=== PATIENT | male | born 1945 | race Caucasian/White ===

== ENCOUNTER 2017-10-03 00:45 | Emergency (ER) | payer MEDICARE, OTHER ==
[2017-10-03 01:11] LABS: #Eosinphils 0.1 thou/uL (0.0-0.7); #Lymphocytes 1.1 thou/uL (1.20-3.40); #Monocytes 0.8 thou/uL (0.11-0.59); #Neutrophils 7.2 thou/uL (1.40-6.50); %Basophils 0.3 % (0.0-1.0); %Eosinophils 0.7 % (0.0-10.0); %Lymphocytes 11.6 % (21.0-51.0); %Monocytes 9.2 % (0.0-10.0); Hematocrit 41.7 % (42.0-52.0); Red Blood Cell (RBC) Count 4.27 mill/uL (4.70-6.10); White Blood Cell (WBC) Count 9.2 thou/uL (4.8-10.8)
[2017-10-03 01:38] LABS: ALT (SGPT) 15 U/L (8-55); AST (SGOT) 14 U/L (5-34); Alkaline Phosphatase 66 U/L (40-150); Anion Gap 12 mmol/L (10-20); BUN (Urea Nitrogen) 28 mg/dL (8.4-25.7); Bilirubin, Total 0.5 mg/dL (0.2-1.2); Calc. Creatinine Clearance 0 mL/min (70-130); Carbon Dioxide 26 mmol/L (23-31); Chloride 103 mmol/L (98-107); Estimated GFR-MDRD 44; Globulin 3.6 g/dL (2.4-3.5); Protein, Total 7.2 g/dL (5.8-8.1)
[2017-10-03 01:38] LABS: Lactic Acid - Sepsis 1.2 mmol/L (0.5-2.2)
[2017-10-03 01:48] LABS: Troponin I Less than 0.010 ng/mL (< 0.028)
== END 2017-10-03 09:14 | disposition home or self-care (01) ==
LOC: ERS 00:45
DX: E86.0 Dehydration (principal); N17.9 Acute kidney failure, unspecified; E78.5 Hyperlipidemia, unspecified; I10 Essential (primary) hypertension; F32.9 Major depressive disorder, single episode, unspecified; F41.9 Anxiety disorder, unspecified; I73.9 Peripheral vascular disease, unspecified; F17.200 Nicotine dependence, unspecified, uncomplicated; Z79.899 Other long term (current) drug therapy
CPT/HCPCS: 36415; 80053; 82274; 82553; 83605; 83735; 84484; 85025; 93005; 96360; 96361; 99406

== ENCOUNTER 2017-10-04 11:36 | Emergency (ER) | payer MEDICARE, OTHER ==
--- NOTE | 2017-10-04 12:32 | RAD ---
CHEST 1 VIEW: HISTORY: Cough. COMPARISON: 05/08/17. FINDINGS: Cardiac silhouette is magnified by projection. Pulmonary vasculature is slightly engorged. Mediasti num is midline. There is no lobar consolidation or evidence of pneumothorax. dancing teacher leads overlie the chest. IMPRESSION: Borderline pulmonary vascular congestion. POS: [facility]
[2017-10-04 13:41] LABS: #Eosinphils 0.1 thou/uL (0.0-0.7); #Lymphocytes 0.7 thou/uL (1.20-3.40); #Monocytes 0.7 thou/uL (0.11-0.59); #Neutrophils 3.8 thou/uL (1.40-6.50); %Basophils 0.4 % (0.0-1.0); %Eosinophils 1.9 % (0.0-10.0); %Lymphocytes 12.6 % (21.0-51.0); %Monocytes 13.2 % (0.0-10.0); Hematocrit 37.7 % (42.0-52.0); Mean Platelet Volume 6.3 fL (7.4-10.4); Red Blood Cell (RBC) Count 3.85 mill/uL (4.70-6.10); White Blood Cell (WBC) Count 5.3 thou/uL (4.8-10.8)
[2017-10-04 14:01] LABS: Lactic Acid - Sepsis 1.6 mmol/L (0.5-2.2)
[2017-10-04 14:08] LABS: Troponin I Less than 0.010 ng/mL (< 0.028)
[2017-10-04 14:13] LABS: ALT (SGPT) 11 U/L (8-55); AST (SGOT) 15 U/L (5-34); Alkaline Phosphatase 50 U/L (40-150); Anion Gap 10 mmol/L (10-20); BUN (Urea Nitrogen) 14 mg/dL (8.4-25.7); Bilirubin, Total 0.4 mg/dL (0.2-1.2); Calc. Creatinine Clearance 0 mL/min (70-130); Calcium 8.4 mg/dL (7.8-10.44); Carbon Dioxide 25 mmol/L (23-31); Chloride 107 mmol/L (98-107); Estimated GFR-MDRD 61; Globulin 2.9 g/dL (2.4-3.5); Lipase 14 U/L (8-78); Magnesium 1.4 mg/dL (1.6-2.6); Protein, Total 5.9 g/dL (5.8-8.1)
[2017-10-04] MEDS ORDERED: Magnesium Sulfate 2 GM/100 ML BAG ONE (15:03)
--- NOTE | 2017-10-04 15:34 | CT ---
CT OF ABDOMEN AND PELVIS PERFORMED WITH INTRAVENOUS CONTRAST ENHANCEMENT: 10/04/17 HISTORY: Abdominal pain, diarrhea, onset x5 days. The lung bases are clear of infiltrates. Liver shows suggestion of fatty change. Liver measures 18.2 cm in length. The spleen is within normal limits. The pancreas and gallbladder regions are unremarkable. Right and left adrenal glands are normal. Bilateral renal cysts are present. There is no significant periaortic or mesenteric adenopathy. There is some questionable wall thickening to the colon more so in the left colon and sigmoid region. This is equivocal as it is not optimally distended. There is no pericolonic inflammatory process. CT OF PELVIS PERFORMED WITH CONTRAST ENHANCEMENT: The bladder is mildly distended. There is no evidence of adenopathy, mass or free fluid. The appendix is normal. There are arthritic changes of the spine and hips. IMPRESSION: 1. Questionable wall thickening to the colon, particularly the left colon and sigmoid region. I cannot definitely exclude a colitis. Clinical correlation is recommended. No pericolonic inflammator y process seen. 2. Bilateral renal cysts. 3. Fatty changes of the liver which is borderline in size. POS: [facility]
[2017-10-04 16:05] LABS: Bilirubin Negative (Negative); Blood, Urine Small (Negative); Glucose, Urine (Dipstick) Negative (Negative); Ketone, Urine Negative (Negative); Nitrite Negative (Negative); Protein, Urine (Dipstick) Negative (Neg-Trace); Urobilinogen 0.2 mg/dL (0.2-1.0)
[2017-10-04 16:08] LABS: Bacteria/HPF None Seen HPF (None Seen); Hyaline Casts/LPF 0-3 HYALINE CAST LPF (0-3 Hyaline); RBC/HPF 0-3 HPF (0-3); Squamous Epithelial None Seen HPF (0-3); WBC/HPF None Seen HPF (0-3)
[2017-10-04] MEDS ORDERED: ISOVUE-370 76%-LOCM 1 ML ONE (17:22)
[2017-10-04] MEDS ORDERED: Iopamidol 370 76% 50 ML VIAL FS ONE (17:22)
--- NOTE | 2017-10-29 12:58 | EKG ---
Test Reason : Blood Pressure : / mmHG Vent. Rate : 083 BPM Atrial Rate : 083 BPM P-R Int : 136 ms QRS Dur : 088 ms QT Int : 374 ms P-R-T Axes : 057 070 090 degrees QTc Int : 439 ms Normal sinus rhythm Low voltage QRS Nonspecific ST and T wave abnormality Abnormal ECG Confirmed by RAUL PITTS ([id number]), story editor JUDY GOLDMAN ([id number]) on 10/29/2017 12:58:24 PM Referred By: GISSELLE Confirmed By:RAUL PITTS
== END 2017-10-04 17:03 | disposition home or self-care (01) ==
LOC: ERS 11:36
DX: K52.9 Noninfective gastroenteritis and colitis, unspecified (principal); E86.0 Dehydration; E83.42 Hypomagnesemia; I73.9 Peripheral vascular disease, unspecified; E78.5 Hyperlipidemia, unspecified; I10 Essential (primary) hypertension; F41.9 Anxiety disorder, unspecified; F32.9 Major depressive disorder, single episode, unspecified; F17.220 Nicotine dependence, chewing tobacco, uncomplicated; Z79.82 Long term (current) use of aspirin; Z79.899 Other long term (current) drug therapy
CPT/HCPCS: 36415; 51701; 71010; 74177; 80053; 81003; 81015; 82553; 83605; 83690; 83735; 83880; 84484; 85025; 93005; 96361; 96365; 99406; J3475

== ENCOUNTER 2019-03-23 14:15 | Outpatient (CLI) | payer OTHER ==
--- NOTE | 2019-03-23 15:58 | MRI ---
MRI Cervical spine without contrast: HISTORY: Cervical spondylosis COMPARISON: None FINDINGS: The craniocervical junction is unremarkable. Cord signal is somewhat distorted by motion, limiting assessment C1-2:No significant stenosis. C2-3:Mild effacement of ventral thecal sac due to disc osteophyte complex C3-4:Mild central canal stenosis and mild to moderate left foraminal stenosis due to disc osteophyte and facet hypertrophy. Mild right foraminal narrowing. C4-5:Mild central canal stenosis, and moderate bilateral neural foraminal stenosis, right greater shyanne n left, due to broad-based disc osteophyte, and bilateral facet hypertrophy C5-6:Partial osseous fusion of disc space with prominent height loss of the disc space present. There is mild ventral cord flattening due to broad-based disc osteophyte with moderate left and mild right neural foraminal narrowing C6-7: Prominent disc space narrowing with right asymmetric disc osteophyte complex. Mild ventral cord effacement and mild bilateral neural foraminal stenosis present C7-T1:Mild right foraminal narrowing due to osteophyte formation. No significant central canal or lef t foraminal stenosis IMPRESSION: Multilevel degenerative change throughout cervical spine, as outlined above. Transcribed Date/Time: 03/23/2019 5:10 PM
== END 2019-03-23 14:16 | disposition home or self-care (01) ==
LOC: TBSIIMAG 14:15
PROVIDERS: ATTEND Neurological Surgery
DX: M47.812 Spondylosis without myelopathy or radiculopathy, cervical region (principal)
CPT/HCPCS: 72141

== ENCOUNTER 2019-12-11 14:08 | Emergency (ER) | payer OTHER ==
[2019-12-11] MEDS ORDERED: Ketorolac Tromethamine 60 MG/2 ML VIAL ONE (14:47)
--- NOTE | 2019-12-11 15:37 | CT ---
EXAM: CT of the lumbar spine without contrast HISTORY: Low back pain that radiates down the right leg COMPARISON: None TECHNIQUE: Multiple contiguous axial images were obtained in a CT of the lumbar spine without contras t. Sagittal and coronal reformats were performed. FINDINGS: The vertebral bodies demonstrate normal height without fracture or subluxation. Interverteb ral discs are narrowed throughout the lumbar spine, most prominent at L4/5 and L5/S1. Moderate osteophytes are seen throughout the lumbar spine. . No bony narrowing of the central canal is seen. T here may be a discussed by complex at L5/S1 which causes moderate central canal stenosis. There is moderate bilateral neural foraminal stenosis at L5/S1. No bony narrowing of the other neural foramina is seen. . The prevertebral and paraspinal soft tissues are unremarkable. IMPRESSION: Degenerative changes without evidence of acute osseous abnormality of the lumbar spine.
== END 2019-12-11 15:00 | disposition home or self-care (01) ==
LOC: ERS 14:08
DX: M51.36 Other intervertebral disc degeneration, lumbar region (principal); E78.5 Hyperlipidemia, unspecified; I10 Essential (primary) hypertension; F41.9 Anxiety disorder, unspecified; F32.9 Major depressive disorder, single episode, unspecified; F17.200 Nicotine dependence, unspecified, uncomplicated
CPT/HCPCS: 72131; 96372; J1885

== ENCOUNTER 2021-07-25 22:06 | Observation (INO) | payer OTHER ==
[2021-07-25 22:49] LABS: #Eosinphils 0.2 thou/uL (0.0-0.7); #Lymphocytes 1.2 thou/uL (1.20-3.40); #Monocytes 0.6 thou/uL (0.11-0.59); #Neutrophils 8.4 thou/uL (1.40-6.50); %Basophils 0.1 % (0.0-1.0); %Eosinophils 1.6 % (0.0-10.0); %Lymphocytes 11.8 % (21.0-51.0); %Monocytes 5.4 % (0.0-10.0); %Neutrophils 81.1 % (42.0-75.0); Mean Corpuscular HGB CONC 32.7 g/dL (32.0-36.0); Mean Corpuscular Hemoglobin 31.6 pg (27.0-31.0); Mean Corpuscular Volume 96.7 fL (78.0-98.0); Mean Platelet Volume 6.2 fL (7.4-10.4); Platelet Count 201 thou/uL (130-400); RBC Distribution Width 12.4 % (11.5-14.5); Red Blood Cell (RBC) Count 4.76 mill/uL (4.70-6.10); White Blood Cell (WBC) Count 10.4 thou/uL (4.8-10.8)
[2021-07-25 23:10] LABS: ALT (SGPT) Less than 7 U/L (8-55); AST (SGOT) 8 U/L (5-34); Albumin 3.7 g/dL (3.4-4.8); Alkaline Phosphatase 64 U/L (40-110); Anion Gap 13 mmol/L (10-20); BUN (Urea Nitrogen) 26 mg/dL (8.4-25.7); Bilirubin, Total 0.5 mg/dL (0.2-1.2); CK (CPK) 19 U/L (30-200); Calc. Creatinine Clearance 0 mL/min (70-130); Calcium 9.9 mg/dL (7.8-10.44); Carbon Dioxide 27 mmol/L (23-31); Chloride 103 mmol/L (98-107); Globulin 3.3 g/dL (2.4-3.5); Glucose 121 mg/dL (83-110); Potassium 4.9 mmol/L (3.5-5.1); Sodium 138 mmol/L (136-145)
[2021-07-25 23:11] LABS: PTT 34.7 sec (22.9-36.1); Prothrombin Time 13.6 sec (12.0-14.7)
[2021-07-25] MEDS ORDERED: Meclizine HCl 25 MG TAB ONE (23:13)
[2021-07-25 23:27] LABS: Bacteria/HPF None Seen HPF (None Seen); Bilirubin Negative (Negative); Blood, Urine Trace (Negative); Clarity Clear (Clear); Glucose, Urine (Dipstick) Normal (Negative); Ketone, Urine Negative (Negative); Leukocyte Negative Leu/uL (Negative); Nitrite Negative (Negative); Protein, Urine (Dipstick) Negative (Neg-Trace); Specific Gravity, Urine 1.022 (1.002-1.036); Squamous Epithelial None Seen HPF (0-3); Urobilinogen Normal mg/dL (Less than 2); WBC/HPF None Seen HPF (0-3)
[2021-07-26] MEDS ORDERED: Acetaminophen 325 MG TAB PO PRN ×2 (01:07→17:20)
[2021-07-26] MEDS ORDERED: Ondansetron ODT 4 MG TAB PO PRN (01:07)
[2021-07-26] MEDS ORDERED: Lactated Ringer's 1,000 ML IV SCH (01:45)
[2021-07-26 03:03] LABS: Troponin I Less than 0.010 ng/mL (< 0.028)
[2021-07-26 04:15] LABS: SARS-CoV-2 NAA Rapid Test Not Detected (NotDetected)
[2021-07-26 07:42] LABS: Troponin I Less than 0.010 ng/mL (< 0.028)
[2021-07-26] MEDS ORDERED: Mometasone Furoate 120 PUFF 220 MCG INH SCH (18:30)
[2021-07-26] MEDS ORDERED: Albuterol Sulfate 2.5 mg/3 ml Neb NEB PRN (18:30)
[2021-07-26] MEDS ORDERED: Mometasone Furoate 30 PUFF 220 MCG INH SCH (18:30)
[2021-07-26 18:34] VITALS: BMI 28.4
[2021-07-26] MEDS: Carbidopa/Levodopa 25-100 mg Tablet PO SCH (20:56)
[2021-07-26] MEDS ORDERED: PITAVASTATIN CALCIUM PO SCH (21:00)
[2021-07-27] MEDS: Carbidopa/Levodopa 25-100 mg Tablet PO SCH ×2 (08:43→14:07)
[2021-07-27] MEDS ORDERED: FLUoxetine HCl 20 MG CAP PO SCH (09:00)
[2021-07-27] MEDS ORDERED: Lisinopril 2.5 MG TAB PO SCH (09:00)
[2021-07-27] MEDS ORDERED: Cholecalciferol 1,000 UNITS (25 MCG) TAB PO SCH (09:00)
[2021-07-27] MEDS ORDERED: Aspirin Chewable 81 MG TAB PO SCH (09:00)
[2021-07-27] MEDS ORDERED: Finasteride 5 MG TAB PO SCH (09:00)
[2021-07-27 15:47] VITALS: BP 144/63; TEMP 97.8
[2021-07-28] MEDS ORDERED: Triamterene/Hydrochlorothiazide 37.5 mg/25 mg Tablet PO SCH ×2 (09:00)
== END 2021-07-27 19:18 | disposition home health service (06) ==
LOC: ERS 22:06 → ERHOLD 07-26 00:12 → 2NO 07-26 17:28
PROVIDERS: ADMIT Student in an Organized Health Care Education/Training Program; ATTEND Student in an Organized Health Care Education/Training Program
DX: R55 Syncope and collapse (principal); G20 Parkinson's disease; I12.9 Hypertensive chronic kidney disease with stage 1 through stage 4 chronic kidney disease, or unspecified chronic kidney disease; N18.31 Chronic kidney disease, stage 3a; E78.5 Hyperlipidemia, unspecified; N40.1 Benign prostatic hyperplasia with lower urinary tract symptoms; N39.498 Other specified urinary incontinence; I73.9 Peripheral vascular disease, unspecified; Z87.891 Personal history of nicotine dependence; Z79.02 Long term (current) use of antithrombotics/antiplatelets; Z79.82 Long term (current) use of aspirin; Z79.899 Other long term (current) drug therapy; Z88.8 Allergy status to other drugs, medicaments and biological substances; Z95.1 Presence of aortocoronary bypass graft; Z20.822 Contact with and (suspected) exposure to COVID-19
CPT/HCPCS: 36415; 51701; 70450; 71045; 80053; 81003; 81015; 82550; 84443; 84484; 85025; 85610; 85730; 87086; 93005; G0378; J7120; U0002

== ENCOUNTER 2021-08-04 21:07 | Emergency (ER) | payer OTHER ==
[2021-08-04] MEDS ORDERED: Albuterol 200 PUFF (6.7GM INHALER) ONE (22:54)
== END 2021-08-05 00:09 | disposition home or self-care (01) ==
LOC: ERS 21:07
DX: J44.9 Chronic obstructive pulmonary disease, unspecified (principal); I73.9 Peripheral vascular disease, unspecified; I10 Essential (primary) hypertension; E78.5 Hyperlipidemia, unspecified; F17.210 Nicotine dependence, cigarettes, uncomplicated; G20 Parkinson's disease; Z79.82 Long term (current) use of aspirin; Z79.899 Other long term (current) drug therapy
CPT/HCPCS: 99284

== ENCOUNTER 2022-07-13 14:40 | Inpatient (IN) | payer MEDICARE, OTHER ==
[2022-07-13] MEDS ORDERED: Senokot S 8.6-50 MG TAB PO PRN (16:28)
[2022-07-13] MEDS ORDERED: Ondansetron ODT 4 MG TAB PO PRN (16:28)
[2022-07-13] MEDS ORDERED: Ondansetron PF 4 MG/2 ML Vial IVP PRN (16:28)
[2022-07-13] MEDS: Sodium Chloride 0.9% 1,000 ML IV SCH (17:18)
[2022-07-13 17:28] LABS: #Eosinphils 0.2 thou/uL (0.0-0.7); #Lymphocytes 1.2 thou/uL (1.20-3.40); #Monocytes 0.5 thou/uL (0.11-0.59); #Neutrophils 5.1 thou/uL (1.40-6.50); %Basophils 0.3 % (0.0-1.0); %Eosinophils 2.3 % (0.0-10.0); %Lymphocytes 17.2 % (21.0-51.0); %Monocytes 7.1 % (0.0-10.0); %Neutrophils 73.2 % (42.0-75.0); Hemoglobin 16.4 g/dL (14.0-18.0); Mean Corpuscular HGB CONC 34.1 g/dL (32.0-36.0); Mean Corpuscular Hemoglobin 33.1 pg (27.0-31.0); Mean Corpuscular Volume 97.2 fL (78.0-98.0); Mean Platelet Volume 6.7 fL (7.4-10.4); Platelet Count 179 thou/uL (130-400); RBC Distribution Width 12.1 % (11.5-14.5); Red Blood Cell (RBC) Count 4.96 mill/uL (4.70-6.10)
[2022-07-13 17:43] LABS: Anion Gap 15 mmol/L (10-20); BUN (Urea Nitrogen) 24 mg/dL (8.4-25.7); Calc. Creatinine Clearance 79 mL/min (70-130); Calcium 9.3 mg/dL (7.8-10.44); Carbon Dioxide 23 mmol/L (23-31); Chloride 106 mmol/L (98-107); Estimated GFR 81; Glucose 100 mg/dL (83-110); Magnesium 1.7 mg/dL (1.6-2.6); Potassium 4.2 mmol/L (3.5-5.1); Sodium 140 mmol/L (136-145)
[2022-07-13 18:14] LABS: Troponin I 0.011 ng/mL (< 0.028)
[2022-07-13] MEDS: Nicotine 14 MG PATCH TD SCH (18:18)
[2022-07-13] MEDS ORDERED: Nitroglycerin 0.4 MG TAB (25 Tab Bottle) SL PRN (18:26)
[2022-07-13] MEDS: Acetaminophen 325 MG TAB PO PRN (19:20)
[2022-07-13] MEDS: Metoprolol Tartrate 50 MG TAB PO SCH (19:20)
[2022-07-13] MEDS: Carbidopa/Levodopa 25-100 mg Tablet PO SCH (19:21)
[2022-07-13] MEDS: Enoxaparin Sodium 40 MG/0.4 ML SYRINGE SC SCH (19:23)
[2022-07-13 20:18] LABS: Troponin I Less than 0.010 ng/mL (< 0.028)
[2022-07-13] MEDS ORDERED: Carbidopa/Levodopa 25-100 mg Tablet PO SCH (21:00)
[2022-07-13] MEDS: Floranex 1 GM Packet PO SCH (21:11)
[2022-07-14] MEDS ORDERED: hydrALAZINE 20 MG/ML VIAL SLOW IVP SCH (01:00)
[2022-07-14 04:17] LABS: #Eosinphils 0.3 thou/uL (0.0-0.7); #Lymphocytes 1.3 thou/uL (1.20-3.40); #Monocytes 0.5 thou/uL (0.11-0.59); #Neutrophils 5.5 thou/uL (1.40-6.50); %Basophils 0.6 % (0.0-1.0); %Lymphocytes 16.7 % (21.0-51.0); %Monocytes 6.9 % (0.0-10.0); %Neutrophils 71.8 % (42.0-75.0); Hemoglobin 16.5 g/dL (14.0-18.0); Mean Corpuscular HGB CONC 34.7 g/dL (32.0-36.0); Mean Corpuscular Hemoglobin 33.3 pg (27.0-31.0); Mean Corpuscular Volume 96.1 fL (78.0-98.0); Mean Platelet Volume 6.4 fL (7.4-10.4); Platelet Count 171 thou/uL (130-400); RBC Distribution Width 12.1 % (11.5-14.5); Red Blood Cell (RBC) Count 4.95 mill/uL (4.70-6.10); White Blood Cell (WBC) Count 7.6 thou/uL (4.8-10.8)
[2022-07-14 04:36] LABS: Anion Gap 13 mmol/L (10-20); BUN (Urea Nitrogen) 21 mg/dL (8.4-25.7); Calc. Creatinine Clearance 89 mL/min (70-130); Calcium 9.5 mg/dL (7.8-10.44); Carbon Dioxide 23 mmol/L (23-31); Chloride 107 mmol/L (98-107); Estimated GFR 90; Glucose 112 mg/dL (83-110); Potassium 3.4 mmol/L (3.5-5.1); Sodium 140 mmol/L (136-145)
[2022-07-14] MEDS: Acetaminophen 325 MG TAB PO PRN (05:10)
[2022-07-14] MEDS: Sodium Chloride 0.9% 1,000 ML IV SCH (05:39)
[2022-07-14] MEDS ORDERED: Potassium Chloride 20 MEQ TAB PO SCH (08:00)
[2022-07-14] MEDS: Tamsulosin HCl 0.4 MG CAP PO SCH (09:02)
[2022-07-14] MEDS: Floranex 1 GM Packet PO SCH ×2 (09:02→20:33)
[2022-07-14] MEDS: Metoprolol Tartrate 50 MG TAB PO SCH ×2 (09:03→20:34)
[2022-07-14] MEDS: Carbidopa/Levodopa 25-100 mg Tablet PO SCH ×3 (09:03→19:07)
[2022-07-14] MEDS: Aspirin Chewable 81 MG TAB PO SCH (09:04)
[2022-07-14] MEDS: Finasteride 5 MG TAB PO SCH (09:04)
[2022-07-14] MEDS: Cholecalciferol 1,000 UNITS (25 MCG) TAB PO SCH (09:04)
[2022-07-14] MEDS: FLUoxetine HCl 10 MG CAP PO SCH (09:04)
[2022-07-14] MEDS: Lisinopril 10 MG TAB PO SCH (09:04)
[2022-07-14] MEDS: Nicotine 14 MG PATCH TD SCH (18:58)
[2022-07-14] MEDS ORDERED: Carbidopa/Levodopa 25-100 mg Tablet PO SCH (19:00)
[2022-07-14] MEDS: Enoxaparin Sodium 40 MG/0.4 ML SYRINGE SC SCH (20:34)
[2022-07-15 04:57] LABS: #Eosinphils 0.3 thou/uL (0.0-0.7); #Lymphocytes 1.7 thou/uL (1.20-3.40); #Monocytes 0.5 thou/uL (0.11-0.59); #Neutrophils 4.1 thou/uL (1.40-6.50); %Basophils 0.6 % (0.0-1.0); %Eosinophils 5.1 % (0.0-10.0); %Lymphocytes 25.1 % (21.0-51.0); %Monocytes 8.2 % (0.0-10.0); Hemoglobin 16.3 g/dL (14.0-18.0); Mean Corpuscular HGB CONC 35.4 g/dL (32.0-36.0); Mean Corpuscular Hemoglobin 34.4 pg (27.0-31.0); Mean Corpuscular Volume 97.2 fL (78.0-98.0); Mean Platelet Volume 6.8 fL (7.4-10.4); Platelet Count 172 thou/uL (130-400); RBC Distribution Width 12.4 % (11.5-14.5); Red Blood Cell (RBC) Count 4.75 mill/uL (4.70-6.10); White Blood Cell (WBC) Count 6.6 thou/uL (4.8-10.8)
[2022-07-15 05:04] LABS: Anion Gap 12 mmol/L (10-20); BUN (Urea Nitrogen) 19 mg/dL (8.4-25.7); Calc. Creatinine Clearance 86 mL/min (70-130); Calcium 9.2 mg/dL (7.8-10.44); Carbon Dioxide 24 mmol/L (23-31); Chloride 107 mmol/L (98-107); Estimated GFR 89; Glucose 92 mg/dL (83-110); Potassium 4.1 mmol/L (3.5-5.1); Sodium 139 mmol/L (136-145)
[2022-07-15] MEDS: Tamsulosin HCl 0.4 MG CAP PO SCH (08:04)
[2022-07-15] MEDS: Aspirin Chewable 81 MG TAB PO SCH (08:04)
[2022-07-15] MEDS: Carbidopa/Levodopa 25-100 mg Tablet PO SCH ×4 (08:04→21:02)
[2022-07-15] MEDS: Finasteride 5 MG TAB PO SCH (08:04)
[2022-07-15] MEDS: Cholecalciferol 1,000 UNITS (25 MCG) TAB PO SCH (08:04)
[2022-07-15] MEDS: FLUoxetine HCl 10 MG CAP PO SCH (08:05)
[2022-07-15] MEDS: Lisinopril 10 MG TAB PO SCH (08:05)
[2022-07-15] MEDS: Metoprolol Tartrate 50 MG TAB PO SCH ×2 (08:05→20:54)
[2022-07-15] MEDS: Floranex 1 GM Packet PO SCH ×2 (08:19→20:55)
[2022-07-15] MEDS: Nicotine 14 MG PATCH TD SCH (17:02)
[2022-07-15] MEDS: Enoxaparin Sodium 40 MG/0.4 ML SYRINGE SC SCH (20:55)
[2022-07-16 05:39] LABS: Anion Gap 14 mmol/L (10-20); BUN (Urea Nitrogen) 17 mg/dL (8.4-25.7); Calc. Creatinine Clearance 95 mL/min (70-130); Calcium 9.4 mg/dL (7.8-10.44); Carbon Dioxide 24 mmol/L (23-31); Chloride 105 mmol/L (98-107); Eosinophils 4 % (0-10); Estimated GFR 92; Glucose 85 mg/dL (83-110); Hemoglobin 15.4 g/dL (14.0-18.0); Lymphocytes 21 % (21-51); MDiff Complete? YES; Mean Corpuscular Volume 97.2 fL (78.0-98.0); Mean Platelet Volume 7.4 fL (7.4-10.4); Monocytes 6 % (0-10); Neutrophil 68 % (42-75); Platelet Count 181 thou/uL (130-400); Potassium 3.8 mmol/L (3.5-5.1); RBC Distribution Width 12.4 % (11.5-14.5); Reactive Lymphocytes 1 % (0-10); Red Blood Cell (RBC) Count 4.66 mill/uL (4.70-6.10); Sodium 139 mmol/L (136-145); White Blood Cell (WBC) Count 5.4 thou/uL (4.8-10.8)
[2022-07-16] MEDS: Tamsulosin HCl 0.4 MG CAP PO SCH (07:49)
[2022-07-16] MEDS: Finasteride 5 MG TAB PO SCH (07:50)
[2022-07-16] MEDS: Aspirin Chewable 81 MG TAB PO SCH (07:50)
[2022-07-16] MEDS: Lisinopril 10 MG TAB PO SCH (07:50)
[2022-07-16] MEDS: Carbidopa/Levodopa 25-100 mg Tablet PO SCH ×4 (07:50→21:32)
[2022-07-16] MEDS: Metoprolol Tartrate 50 MG TAB PO SCH ×2 (07:50→21:32)
[2022-07-16] MEDS: FLUoxetine HCl 10 MG CAP PO SCH (07:50)
[2022-07-16] MEDS: Cholecalciferol 1,000 UNITS (25 MCG) TAB PO SCH (07:51)
[2022-07-16] MEDS: Floranex 1 GM Packet PO SCH ×2 (09:52→21:32)
[2022-07-16] MEDS: Nicotine 14 MG PATCH TD SCH (19:01)
[2022-07-16] MEDS: Enoxaparin Sodium 40 MG/0.4 ML SYRINGE SC SCH (21:32)
[2022-07-17] MEDS: Tamsulosin HCl 0.4 MG CAP PO SCH (08:14)
[2022-07-17] MEDS: Finasteride 5 MG TAB PO SCH (08:14)
[2022-07-17] MEDS: Metoprolol Tartrate 50 MG TAB PO SCH ×2 (08:15→21:06)
[2022-07-17] MEDS: Acetaminophen 325 MG TAB PO PRN (08:15)
[2022-07-17] MEDS: Carbidopa/Levodopa 25-100 mg Tablet PO SCH ×4 (08:15→21:05)
[2022-07-17] MEDS: Aspirin Chewable 81 MG TAB PO SCH (08:15)
[2022-07-17] MEDS: Floranex 1 GM Packet PO SCH ×2 (08:15→21:04)
[2022-07-17] MEDS: Cholecalciferol 1,000 UNITS (25 MCG) TAB PO SCH (08:16)
[2022-07-17] MEDS: Lisinopril 10 MG TAB PO SCH (08:17)
[2022-07-17] MEDS: FLUoxetine HCl 10 MG CAP PO SCH (08:17)
[2022-07-17] MEDS: Nicotine 14 MG PATCH TD SCH (21:04)
[2022-07-17] MEDS: Enoxaparin Sodium 40 MG/0.4 ML SYRINGE SC SCH (21:07)
[2022-07-18] MEDS: Finasteride 5 MG TAB PO SCH (08:16)
[2022-07-18] MEDS: Cholecalciferol 1,000 UNITS (25 MCG) TAB PO SCH (08:16)
[2022-07-18] MEDS: Lisinopril 10 MG TAB PO SCH (08:16)
[2022-07-18] MEDS: FLUoxetine HCl 10 MG CAP PO SCH (08:16)
[2022-07-18] MEDS: Aspirin Chewable 81 MG TAB PO SCH (08:16)
[2022-07-18] MEDS: Carbidopa/Levodopa 25-100 mg Tablet PO SCH ×4 (08:16→21:04)
[2022-07-18] MEDS: Tamsulosin HCl 0.4 MG CAP PO SCH (08:16)
[2022-07-18] MEDS: Floranex 1 GM Packet PO SCH ×2 (08:17→21:01)
[2022-07-18] MEDS: Metoprolol Tartrate 50 MG TAB PO SCH ×2 (08:17→21:01)
[2022-07-18] MEDS: Nicotine 14 MG PATCH TD SCH (17:17)
[2022-07-18] MEDS: Enoxaparin Sodium 40 MG/0.4 ML SYRINGE SC SCH (21:04)
[2022-07-19] MEDS: Aspirin Chewable 81 MG TAB PO SCH (08:36)
[2022-07-19] MEDS: Metoprolol Tartrate 50 MG TAB PO SCH ×2 (08:36→21:09)
[2022-07-19] MEDS: Lisinopril 10 MG TAB PO SCH (08:36)
[2022-07-19] MEDS: Carbidopa/Levodopa 25-100 mg Tablet PO SCH ×4 (08:37→21:09)
[2022-07-19] MEDS: Cholecalciferol 1,000 UNITS (25 MCG) TAB PO SCH (08:38)
[2022-07-19] MEDS: Tamsulosin HCl 0.4 MG CAP PO SCH (08:38)
[2022-07-19] MEDS: FLUoxetine HCl 10 MG CAP PO SCH (08:38)
[2022-07-19] MEDS: Finasteride 5 MG TAB PO SCH (08:38)
[2022-07-19] MEDS: Floranex 1 GM Packet PO SCH ×2 (08:39→21:09)
[2022-07-19] MEDS: Nicotine 14 MG PATCH TD SCH (16:40)
[2022-07-19] MEDS: Enoxaparin Sodium 40 MG/0.4 ML SYRINGE SC SCH (21:09)
[2022-07-20] MEDS: Carbidopa/Levodopa 25-100 mg Tablet PO SCH ×4 (08:38→21:04)
[2022-07-20] MEDS: Floranex 1 GM Packet PO SCH ×2 (08:39→21:09)
[2022-07-20] MEDS: Metoprolol Tartrate 50 MG TAB PO SCH ×2 (08:39→21:04)
[2022-07-20] MEDS: Cholecalciferol 1,000 UNITS (25 MCG) TAB PO SCH (08:40)
[2022-07-20] MEDS: Aspirin Chewable 81 MG TAB PO SCH (08:40)
[2022-07-20] MEDS: Lisinopril 10 MG TAB PO SCH (08:40)
[2022-07-20] MEDS: Finasteride 5 MG TAB PO SCH (08:40)
[2022-07-20] MEDS: FLUoxetine HCl 10 MG CAP PO SCH (08:40)
[2022-07-20] MEDS: Tamsulosin HCl 0.4 MG CAP PO SCH (08:40)
[2022-07-20] MEDS: Nicotine 14 MG PATCH TD SCH (16:40)
[2022-07-20] MEDS: Enoxaparin Sodium 40 MG/0.4 ML SYRINGE SC SCH (21:03)
[2022-07-21] MEDS: Finasteride 5 MG TAB PO SCH (08:05)
[2022-07-21] MEDS: Aspirin Chewable 81 MG TAB PO SCH (08:05)
[2022-07-21] MEDS: Lisinopril 10 MG TAB PO SCH (08:05)
[2022-07-21] MEDS: Floranex 1 GM Packet PO SCH ×2 (08:05→21:26)
[2022-07-21] MEDS: Carbidopa/Levodopa 25-100 mg Tablet PO SCH ×4 (08:05→21:39)
[2022-07-21] MEDS: Metoprolol Tartrate 50 MG TAB PO SCH ×2 (08:06→21:27)
[2022-07-21] MEDS: FLUoxetine HCl 10 MG CAP PO SCH (08:06)
[2022-07-21] MEDS: Cholecalciferol 1,000 UNITS (25 MCG) TAB PO SCH (08:06)
[2022-07-21] MEDS: Tamsulosin HCl 0.4 MG CAP PO SCH (08:07)
[2022-07-21] MEDS: Nicotine 14 MG PATCH TD SCH (17:55)
[2022-07-21] MEDS: Enoxaparin Sodium 40 MG/0.4 ML SYRINGE SC SCH (21:26)
[2022-07-22 08:08] LABS: #Eosinphils 0.2 thou/uL (0.0-0.7); #Lymphocytes 1.1 thou/uL (1.20-3.40); #Monocytes 0.6 thou/uL (0.11-0.59); #Neutrophils 3.7 thou/uL (1.40-6.50); %Basophils 0.4 % (0.0-1.0); %Eosinophils 3.5 % (0.0-10.0); %Lymphocytes 19.4 % (21.0-51.0); %Monocytes 10.6 % (0.0-10.0); Hemoglobin 16.9 g/dL (14.0-18.0); Mean Corpuscular HGB CONC 33.6 g/dL (32.0-36.0); Mean Corpuscular Hemoglobin 32.5 pg (27.0-31.0); Mean Corpuscular Volume 96.5 fL (78.0-98.0); Mean Platelet Volume 6.5 fL (7.4-10.4); Platelet Count 208 thou/uL (130-400); RBC Distribution Width 11.9 % (11.5-14.5); Red Blood Cell (RBC) Count 5.22 mill/uL (4.70-6.10); White Blood Cell (WBC) Count 5.6 thou/uL (4.8-10.8)
[2022-07-22 08:41] LABS: ALT (SGPT) Less than 7 U/L (8-55); AST (SGOT) 10 U/L (5-34); Albumin 3.7 g/dL (3.4-4.8); Alkaline Phosphatase 64 U/L (40-110); BUN (Urea Nitrogen) 18 mg/dL (8.4-25.7); Bilirubin, Total 0.9 mg/dL (0.2-1.2); Calc. Creatinine Clearance 74 mL/min (70-130); Calcium 10.2 mg/dL (7.8-10.44); Carbon Dioxide 31 mmol/L (23-31); Chloride 99 mmol/L (98-107); Estimated GFR 75; Globulin 3.4 g/dL (2.4-3.5); Glucose 89 mg/dL (83-110); Potassium 4.1 mmol/L (3.5-5.1); Protein, Total 7.1 g/dL (5.8-8.1); Sodium 140 mmol/L (136-145)
[2022-07-22] MEDS: Carbidopa/Levodopa 25-100 mg Tablet PO SCH ×4 (08:58→20:33)
[2022-07-22] MEDS: Cholecalciferol 1,000 UNITS (25 MCG) TAB PO SCH (09:00)
[2022-07-22] MEDS: Metoprolol Tartrate 50 MG TAB PO SCH ×2 (09:00→20:33)
[2022-07-22] MEDS: Lisinopril 10 MG TAB PO SCH (09:00)
[2022-07-22] MEDS: Floranex 1 GM Packet PO SCH ×2 (09:01→20:33)
[2022-07-22] MEDS: Tamsulosin HCl 0.4 MG CAP PO SCH (09:01)
[2022-07-22] MEDS: FLUoxetine HCl 10 MG CAP PO SCH (09:01)
[2022-07-22] MEDS: Aspirin Chewable 81 MG TAB PO SCH (09:01)
[2022-07-22] MEDS: Finasteride 5 MG TAB PO SCH (09:01)
[2022-07-22 09:59] LABS: Anion Gap 14 mmol/L (10-20)
[2022-07-22] MEDS: Nicotine 14 MG PATCH TD SCH (12:50)
[2022-07-22] MEDS: Enoxaparin Sodium 40 MG/0.4 ML SYRINGE SC SCH (20:33)
[2022-07-23] MEDS: Nicotine 14 MG PATCH TD SCH (07:12)
[2022-07-23] MEDS: Carbidopa/Levodopa 25-100 mg Tablet PO SCH ×4 (08:07→21:19)
[2022-07-23] MEDS: Floranex 1 GM Packet PO SCH ×2 (08:07→21:21)
[2022-07-23] MEDS: Cholecalciferol 1,000 UNITS (25 MCG) TAB PO SCH (08:07)
[2022-07-23] MEDS: Lisinopril 10 MG TAB PO SCH (08:08)
[2022-07-23] MEDS: FLUoxetine HCl 10 MG CAP PO SCH (08:08)
[2022-07-23] MEDS: Metoprolol Tartrate 50 MG TAB PO SCH ×2 (08:08→21:20)
[2022-07-23] MEDS: Tamsulosin HCl 0.4 MG CAP PO SCH (08:08)
[2022-07-23] MEDS: Finasteride 5 MG TAB PO SCH (08:09)
[2022-07-23] MEDS: Aspirin Chewable 81 MG TAB PO SCH (08:09)
[2022-07-23] MEDS: Enoxaparin Sodium 40 MG/0.4 ML SYRINGE SC SCH (21:21)
[2022-07-24] MEDS: Acetaminophen 325 MG TAB PO PRN ×3 (05:02→20:28)
[2022-07-24] MEDS: Nicotine 14 MG PATCH TD SCH (07:16)
[2022-07-24] MEDS: Carbidopa/Levodopa 25-100 mg Tablet PO SCH ×4 (09:06→21:42)
[2022-07-24] MEDS: Aspirin Chewable 81 MG TAB PO SCH (09:06)
[2022-07-24] MEDS: Metoprolol Tartrate 50 MG TAB PO SCH ×2 (09:07→20:27)
[2022-07-24] MEDS: Tamsulosin HCl 0.4 MG CAP PO SCH (09:08)
[2022-07-24] MEDS: Cholecalciferol 1,000 UNITS (25 MCG) TAB PO SCH (09:08)
[2022-07-24] MEDS: Floranex 1 GM Packet PO SCH ×2 (09:08→20:43)
[2022-07-24] MEDS: FLUoxetine HCl 10 MG CAP PO SCH (09:08)
[2022-07-24] MEDS: Lisinopril 10 MG TAB PO SCH (09:08)
[2022-07-24] MEDS: Finasteride 5 MG TAB PO SCH (09:08)
[2022-07-24] MEDS: Enoxaparin Sodium 40 MG/0.4 ML SYRINGE SC SCH (20:28)
[2022-07-25] MEDS: Lisinopril 10 MG TAB PO SCH (08:08)
[2022-07-25] MEDS: Floranex 1 GM Packet PO SCH ×2 (08:08→20:22)
[2022-07-25] MEDS: Aspirin Chewable 81 MG TAB PO SCH (08:09)
[2022-07-25] MEDS: FLUoxetine HCl 10 MG CAP PO SCH (08:09)
[2022-07-25] MEDS: Metoprolol Tartrate 50 MG TAB PO SCH ×2 (08:09→20:23)
[2022-07-25] MEDS: Finasteride 5 MG TAB PO SCH (08:09)
[2022-07-25] MEDS: Carbidopa/Levodopa 25-100 mg Tablet PO SCH ×4 (08:09→20:23)
[2022-07-25] MEDS: Cholecalciferol 1,000 UNITS (25 MCG) TAB PO SCH (08:10)
[2022-07-25] MEDS: Tamsulosin HCl 0.4 MG CAP PO SCH (08:10)
[2022-07-25] MEDS: Nicotine 14 MG PATCH TD SCH (18:10)
[2022-07-25] MEDS: Enoxaparin Sodium 40 MG/0.4 ML SYRINGE SC SCH (20:22)
[2022-07-26] MEDS: Lisinopril 10 MG TAB PO SCH (08:21)
[2022-07-26] MEDS: Finasteride 5 MG TAB PO SCH (08:22)
[2022-07-26] MEDS: Metoprolol Tartrate 50 MG TAB PO SCH ×2 (08:22→20:29)
[2022-07-26] MEDS: Floranex 1 GM Packet PO SCH ×2 (08:22→20:29)
[2022-07-26] MEDS: Tamsulosin HCl 0.4 MG CAP PO SCH (08:22)
[2022-07-26] MEDS: Aspirin Chewable 81 MG TAB PO SCH (08:22)
[2022-07-26] MEDS: Cholecalciferol 1,000 UNITS (25 MCG) TAB PO SCH (08:22)
[2022-07-26] MEDS: FLUoxetine HCl 10 MG CAP PO SCH (08:22)
[2022-07-26] MEDS: Carbidopa/Levodopa 25-100 mg Tablet PO SCH ×4 (08:22→20:31)
[2022-07-26] MEDS: Nicotine 14 MG PATCH TD SCH (16:30)
[2022-07-26] MEDS: Enoxaparin Sodium 40 MG/0.4 ML SYRINGE SC SCH (20:29)
[2022-07-26] MEDS: Acetaminophen 325 MG TAB PO PRN (20:31)
[2022-07-27] MEDS: Tamsulosin HCl 0.4 MG CAP PO SCH (08:35)
[2022-07-27] MEDS: Finasteride 5 MG TAB PO SCH (08:35)
[2022-07-27] MEDS: Floranex 1 GM Packet PO SCH ×2 (08:35→20:49)
[2022-07-27] MEDS: Metoprolol Tartrate 50 MG TAB PO SCH ×2 (08:35→20:49)
[2022-07-27] MEDS: Carbidopa/Levodopa 25-100 mg Tablet PO SCH ×4 (08:35→20:49)
[2022-07-27] MEDS: Aspirin Chewable 81 MG TAB PO SCH (08:35)
[2022-07-27] MEDS: Cholecalciferol 1,000 UNITS (25 MCG) TAB PO SCH (08:36)
[2022-07-27] MEDS: Lisinopril 10 MG TAB PO SCH (08:36)
[2022-07-27] MEDS: FLUoxetine HCl 10 MG CAP PO SCH (08:36)
[2022-07-27] MEDS: Nicotine 14 MG PATCH TD SCH (18:03)
[2022-07-27] MEDS: Enoxaparin Sodium 40 MG/0.4 ML SYRINGE SC SCH (20:49)
[2022-07-28] MEDS: Lisinopril 10 MG TAB PO SCH (08:09)
[2022-07-28] MEDS: Cholecalciferol 1,000 UNITS (25 MCG) TAB PO SCH (08:09)
[2022-07-28] MEDS: Metoprolol Tartrate 50 MG TAB PO SCH ×2 (08:09→20:59)
[2022-07-28] MEDS: FLUoxetine HCl 10 MG CAP PO SCH (08:09)
[2022-07-28] MEDS: Aspirin Chewable 81 MG TAB PO SCH (08:10)
[2022-07-28] MEDS: Floranex 1 GM Packet PO SCH ×2 (08:10→20:59)
[2022-07-28] MEDS: Finasteride 5 MG TAB PO SCH (08:10)
[2022-07-28] MEDS: Tamsulosin HCl 0.4 MG CAP PO SCH (08:10)
[2022-07-28] MEDS: Carbidopa/Levodopa 25-100 mg Tablet PO SCH ×4 (08:10→20:59)
[2022-07-28] MEDS: Nicotine 14 MG PATCH TD SCH (17:33)
[2022-07-28] MEDS: Enoxaparin Sodium 40 MG/0.4 ML SYRINGE SC SCH (20:59)
[2022-07-29] MEDS: Lisinopril 10 MG TAB PO SCH (08:43)
[2022-07-29] MEDS: Floranex 1 GM Packet PO SCH ×2 (08:43→20:04)
[2022-07-29] MEDS: FLUoxetine HCl 10 MG CAP PO SCH (08:43)
[2022-07-29] MEDS: Tamsulosin HCl 0.4 MG CAP PO SCH (08:43)
[2022-07-29] MEDS: Aspirin Chewable 81 MG TAB PO SCH (08:43)
[2022-07-29] MEDS: Metoprolol Tartrate 50 MG TAB PO SCH ×2 (08:43→20:03)
[2022-07-29] MEDS: Finasteride 5 MG TAB PO SCH (08:43)
[2022-07-29] MEDS: Carbidopa/Levodopa 25-100 mg Tablet PO SCH ×4 (08:44→20:06)
[2022-07-29] MEDS: Cholecalciferol 1,000 UNITS (25 MCG) TAB PO SCH (08:45)
[2022-07-29] MEDS: Nicotine 14 MG PATCH TD SCH (17:38)
[2022-07-29] MEDS: Enoxaparin Sodium 40 MG/0.4 ML SYRINGE SC SCH (20:04)
[2022-07-30] MEDS: Metoprolol Tartrate 50 MG TAB PO SCH ×2 (11:21→20:48)
[2022-07-30] MEDS: Tamsulosin HCl 0.4 MG CAP PO SCH (11:22)
[2022-07-30] MEDS: FLUoxetine HCl 10 MG CAP PO SCH (11:22)
[2022-07-30] MEDS: Aspirin Chewable 81 MG TAB PO SCH (11:22)
[2022-07-30] MEDS: Lisinopril 10 MG TAB PO SCH (11:22)
[2022-07-30] MEDS: Carbidopa/Levodopa 25-100 mg Tablet PO SCH ×4 (11:22→20:46)
[2022-07-30] MEDS: Finasteride 5 MG TAB PO SCH (11:22)
[2022-07-30] MEDS: Cholecalciferol 1,000 UNITS (25 MCG) TAB PO SCH (11:23)
[2022-07-30] MEDS: Floranex 1 GM Packet PO SCH ×2 (11:23→20:45)
[2022-07-30] MEDS: Nicotine 14 MG PATCH TD SCH (17:41)
[2022-07-30] MEDS: Enoxaparin Sodium 40 MG/0.4 ML SYRINGE SC SCH (20:48)
[2022-07-30] MEDS: Guaifenesin DM 100-10/5 ML UDCUP PO PRN (22:42)
[2022-07-30] MEDS: Melatonin 3 MG TAB PO PRN (22:43)
[2022-07-31 09:26] LABS: #Eosinphils 0.1 thou/uL (0.0-0.7); #Lymphocytes 0.9 thou/uL (1.20-3.40); #Monocytes 0.5 thou/uL (0.11-0.59); #Neutrophils 3.2 thou/uL (1.40-6.50); %Basophils 0.3 % (0.0-1.0); %Eosinophils 2.4 % (0.0-10.0); %Lymphocytes 18.3 % (21.0-51.0); %Monocytes 10.9 % (0.0-10.0); Hemoglobin 14.9 g/dL (14.0-18.0); Mean Corpuscular HGB CONC 34.1 g/dL (32.0-36.0); Mean Corpuscular Hemoglobin 33.1 pg (27.0-31.0); Mean Corpuscular Volume 96.9 fL (78.0-98.0); Mean Platelet Volume 7.2 fL (7.4-10.4); Platelet Count 195 thou/uL (130-400); RBC Distribution Width 11.7 % (11.5-14.5); Red Blood Cell (RBC) Count 4.51 mill/uL (4.70-6.10); White Blood Cell (WBC) Count 4.7 thou/uL (4.8-10.8)
[2022-07-31 09:46] LABS: Anion Gap 14 mmol/L (10-20); BUN (Urea Nitrogen) 29 mg/dL (8.4-25.7); Calc. Creatinine Clearance 79 mL/min (70-130); Calcium 9.9 mg/dL (7.8-10.44); Carbon Dioxide 27 mmol/L (23-31); Chloride 100 mmol/L (98-107); Estimated GFR 80; Glucose 150 mg/dL (83-110); Potassium 3.7 mmol/L (3.5-5.1); Sodium 137 mmol/L (136-145)
[2022-07-31] MEDS: Cholecalciferol 1,000 UNITS (25 MCG) TAB PO SCH (10:21)
[2022-07-31] MEDS: Aspirin Chewable 81 MG TAB PO SCH (10:21)
[2022-07-31] MEDS: Floranex 1 GM Packet PO SCH ×2 (10:21→20:50)
[2022-07-31] MEDS: Tamsulosin HCl 0.4 MG CAP PO SCH (10:21)
[2022-07-31] MEDS: Finasteride 5 MG TAB PO SCH (10:21)
[2022-07-31] MEDS: Metoprolol Tartrate 50 MG TAB PO SCH ×2 (10:21→20:51)
[2022-07-31] MEDS: FLUoxetine HCl 10 MG CAP PO SCH (10:22)
[2022-07-31] MEDS: Lisinopril 10 MG TAB PO SCH (10:23)
[2022-07-31] MEDS: Carbidopa/Levodopa 25-100 mg Tablet PO SCH ×4 (10:24→20:54)
[2022-07-31] MEDS: Guaifenesin DM 100-10/5 ML UDCUP PO PRN (20:50)
[2022-07-31] MEDS: Enoxaparin Sodium 40 MG/0.4 ML SYRINGE SC SCH (20:51)
[2022-07-31] MEDS: Melatonin 3 MG TAB PO PRN (20:51)
[2022-08-01] MEDS: Lisinopril 10 MG TAB PO SCH (08:30)
[2022-08-01] MEDS: Metoprolol Tartrate 50 MG TAB PO SCH ×2 (08:31→21:54)
[2022-08-01] MEDS: Finasteride 5 MG TAB PO SCH (08:32)
[2022-08-01] MEDS: Cholecalciferol 1,000 UNITS (25 MCG) TAB PO SCH (08:32)
[2022-08-01] MEDS: FLUoxetine HCl 10 MG CAP PO SCH (08:32)
[2022-08-01] MEDS: Aspirin Chewable 81 MG TAB PO SCH (08:32)
[2022-08-01] MEDS: Tamsulosin HCl 0.4 MG CAP PO SCH (08:32)
[2022-08-01] MEDS: Floranex 1 GM Packet PO SCH ×2 (08:32→21:55)
[2022-08-01] MEDS: Carbidopa/Levodopa 25-100 mg Tablet PO SCH ×4 (08:33→21:54)
[2022-08-01] MEDS: Melatonin 3 MG TAB PO PRN (21:53)
[2022-08-01] MEDS: Enoxaparin Sodium 40 MG/0.4 ML SYRINGE SC SCH (21:55)
[2022-08-02] MEDS: Floranex 1 GM Packet PO SCH ×2 (08:19→20:33)
[2022-08-02] MEDS: Carbidopa/Levodopa 25-100 mg Tablet PO SCH ×4 (08:19→20:33)
[2022-08-02] MEDS: Metoprolol Tartrate 50 MG TAB PO SCH ×2 (08:20→20:33)
[2022-08-02] MEDS: Finasteride 5 MG TAB PO SCH (08:20)
[2022-08-02] MEDS: Tamsulosin HCl 0.4 MG CAP PO SCH (08:20)
[2022-08-02] MEDS: Cholecalciferol 1,000 UNITS (25 MCG) TAB PO SCH (08:21)
[2022-08-02] MEDS: Lisinopril 10 MG TAB PO SCH (08:21)
[2022-08-02] MEDS: Aspirin Chewable 81 MG TAB PO SCH (08:21)
[2022-08-02] MEDS: FLUoxetine HCl 10 MG CAP PO SCH (08:21)
[2022-08-02] MEDS: Enoxaparin Sodium 40 MG/0.4 ML SYRINGE SC SCH (20:34)
[2022-08-03] MEDS: Carbidopa/Levodopa 25-100 mg Tablet PO SCH ×4 (08:50→21:07)
[2022-08-03] MEDS: Floranex 1 GM Packet PO SCH ×2 (08:51→21:06)
[2022-08-03] MEDS: Tamsulosin HCl 0.4 MG CAP PO SCH (08:51)
[2022-08-03] MEDS: Metoprolol Tartrate 50 MG TAB PO SCH ×2 (08:52→21:09)
[2022-08-03] MEDS: FLUoxetine HCl 10 MG CAP PO SCH (08:52)
[2022-08-03] MEDS: Finasteride 5 MG TAB PO SCH (08:52)
[2022-08-03] MEDS: Aspirin Chewable 81 MG TAB PO SCH (08:52)
[2022-08-03] MEDS: Cholecalciferol 1,000 UNITS (25 MCG) TAB PO SCH (08:52)
[2022-08-03] MEDS: Lisinopril 10 MG TAB PO SCH (08:52)
[2022-08-03] MEDS: Enoxaparin Sodium 40 MG/0.4 ML SYRINGE SC SCH (21:08)
[2022-08-04] MEDS: Floranex 1 GM Packet PO SCH ×2 (09:02→20:58)
[2022-08-04] MEDS: Lisinopril 10 MG TAB PO SCH (09:03)
[2022-08-04] MEDS: Finasteride 5 MG TAB PO SCH (09:03)
[2022-08-04] MEDS: Cholecalciferol 1,000 UNITS (25 MCG) TAB PO SCH (09:03)
[2022-08-04] MEDS: Metoprolol Tartrate 50 MG TAB PO SCH ×2 (09:03→20:58)
[2022-08-04] MEDS: Tamsulosin HCl 0.4 MG CAP PO SCH (09:03)
[2022-08-04] MEDS: Aspirin Chewable 81 MG TAB PO SCH (09:03)
[2022-08-04] MEDS: FLUoxetine HCl 10 MG CAP PO SCH (09:03)
[2022-08-04] MEDS: Carbidopa/Levodopa 25-100 mg Tablet PO SCH ×4 (09:05→20:58)
[2022-08-04] MEDS: Enoxaparin Sodium 40 MG/0.4 ML SYRINGE SC SCH (20:58)
[2022-08-05] MEDS: Floranex 1 GM Packet PO SCH ×2 (08:03→20:20)
[2022-08-05] MEDS: Tamsulosin HCl 0.4 MG CAP PO SCH (08:03)
[2022-08-05] MEDS: Metoprolol Tartrate 50 MG TAB PO SCH ×2 (08:04→20:19)
[2022-08-05] MEDS: Finasteride 5 MG TAB PO SCH (08:04)
[2022-08-05] MEDS: Cholecalciferol 1,000 UNITS (25 MCG) TAB PO SCH (08:04)
[2022-08-05] MEDS: Aspirin Chewable 81 MG TAB PO SCH (08:04)
[2022-08-05] MEDS: Carbidopa/Levodopa 25-100 mg Tablet PO SCH ×4 (08:04→20:20)
[2022-08-05] MEDS: FLUoxetine HCl 10 MG CAP PO SCH (08:04)
[2022-08-05] MEDS: Lisinopril 10 MG TAB PO SCH (08:04)
[2022-08-05] MEDS: Melatonin 3 MG TAB PO PRN (20:19)
[2022-08-05] MEDS: Enoxaparin Sodium 40 MG/0.4 ML SYRINGE SC SCH (20:20)
[2022-08-06] MEDS: Floranex 1 GM Packet PO SCH ×2 (08:01→20:25)
[2022-08-06] MEDS: FLUoxetine HCl 10 MG CAP PO SCH (08:01)
[2022-08-06] MEDS: Carbidopa/Levodopa 25-100 mg Tablet PO SCH ×4 (08:02→20:24)
[2022-08-06] MEDS: Lisinopril 10 MG TAB PO SCH (08:02)
[2022-08-06] MEDS: Metoprolol Tartrate 50 MG TAB PO SCH ×2 (08:02→20:24)
[2022-08-06] MEDS: Cholecalciferol 1,000 UNITS (25 MCG) TAB PO SCH (08:03)
[2022-08-06] MEDS: Finasteride 5 MG TAB PO SCH (08:03)
[2022-08-06] MEDS: Tamsulosin HCl 0.4 MG CAP PO SCH (08:03)
[2022-08-06] MEDS: Aspirin Chewable 81 MG TAB PO SCH (08:03)
[2022-08-06] MEDS: Enoxaparin Sodium 40 MG/0.4 ML SYRINGE SC SCH (20:25)
[2022-08-07] MEDS: Aspirin Chewable 81 MG TAB PO SCH (08:28)
[2022-08-07] MEDS: Floranex 1 GM Packet PO SCH ×2 (08:28→21:34)
[2022-08-07] MEDS: Cholecalciferol 1,000 UNITS (25 MCG) TAB PO SCH (08:28)
[2022-08-07] MEDS: Carbidopa/Levodopa 25-100 mg Tablet PO SCH ×4 (08:28→21:34)
[2022-08-07] MEDS: Tamsulosin HCl 0.4 MG CAP PO SCH (08:28)
[2022-08-07] MEDS: Finasteride 5 MG TAB PO SCH (08:29)
[2022-08-07] MEDS: FLUoxetine HCl 10 MG CAP PO SCH (08:29)
[2022-08-07] MEDS: Metoprolol Tartrate 50 MG TAB PO SCH ×2 (08:29→21:34)
[2022-08-07] MEDS: Lisinopril 10 MG TAB PO SCH (08:29)
[2022-08-07 11:03] VITALS: BMI 23.9
[2022-08-07] MEDS: Enoxaparin Sodium 40 MG/0.4 ML SYRINGE SC SCH (21:35)
[2022-08-08] MEDS: Carbidopa/Levodopa 25-100 mg Tablet PO SCH ×4 (08:16→22:49)
[2022-08-08] MEDS: Metoprolol Tartrate 50 MG TAB PO SCH ×2 (08:17→22:49)
[2022-08-08] MEDS: Floranex 1 GM Packet PO SCH ×2 (08:17→22:49)
[2022-08-08] MEDS: Finasteride 5 MG TAB PO SCH (08:17)
[2022-08-08] MEDS: Aspirin Chewable 81 MG TAB PO SCH (08:17)
[2022-08-08] MEDS: Cholecalciferol 1,000 UNITS (25 MCG) TAB PO SCH (08:17)
[2022-08-08] MEDS: Tamsulosin HCl 0.4 MG CAP PO SCH (08:18)
[2022-08-08] MEDS: FLUoxetine HCl 10 MG CAP PO SCH (08:18)
[2022-08-08] MEDS: Lisinopril 10 MG TAB PO SCH (08:18)
[2022-08-08] MEDS: Melatonin 3 MG TAB PO PRN (22:48)
[2022-08-08] MEDS: Enoxaparin Sodium 40 MG/0.4 ML SYRINGE SC SCH (22:49)
[2022-08-09 06:12] LABS: Hemoglobin 15.1 g/dL (14.0-18.0); Platelet Count 297 thou/uL (130-400)
[2022-08-09] MEDS: Floranex 1 GM Packet PO SCH ×2 (08:54→23:44)
[2022-08-09] MEDS: Tamsulosin HCl 0.4 MG CAP PO SCH (08:54)
[2022-08-09] MEDS: Metoprolol Tartrate 50 MG TAB PO SCH ×2 (08:54→23:44)
[2022-08-09] MEDS: FLUoxetine HCl 10 MG CAP PO SCH (08:54)
[2022-08-09] MEDS: Lisinopril 10 MG TAB PO SCH (08:55)
[2022-08-09] MEDS: Finasteride 5 MG TAB PO SCH (08:55)
[2022-08-09] MEDS: Carbidopa/Levodopa 25-100 mg Tablet PO SCH ×4 (08:55→23:44)
[2022-08-09] MEDS: Aspirin Chewable 81 MG TAB PO SCH (08:55)
[2022-08-09] MEDS: Cholecalciferol 1,000 UNITS (25 MCG) TAB PO SCH (08:55)
[2022-08-09] MEDS: ALPRAZolam 0.25 MG TAB PO PRN (13:11)
[2022-08-09] MEDS: Enoxaparin Sodium 40 MG/0.4 ML SYRINGE SC SCH (23:44)
[2022-08-10] MEDS: Floranex 1 GM Packet PO SCH ×2 (09:04→22:03)
[2022-08-10] MEDS: Aspirin Chewable 81 MG TAB PO SCH (09:04)
[2022-08-10] MEDS: Metoprolol Tartrate 50 MG TAB PO SCH ×2 (09:05→22:02)
[2022-08-10] MEDS: FLUoxetine HCl 10 MG CAP PO SCH (09:05)
[2022-08-10] MEDS: Tamsulosin HCl 0.4 MG CAP PO SCH (09:05)
[2022-08-10] MEDS: Lisinopril 10 MG TAB PO SCH (09:05)
[2022-08-10] MEDS: Cholecalciferol 1,000 UNITS (25 MCG) TAB PO SCH (09:06)
[2022-08-10] MEDS: Carbidopa/Levodopa 25-100 mg Tablet PO SCH ×4 (09:06→22:01)
[2022-08-10] MEDS: Finasteride 5 MG TAB PO SCH (09:06)
[2022-08-10] MEDS: ALPRAZolam 0.25 MG TAB PO PRN (22:04)
[2022-08-10] MEDS: Enoxaparin Sodium 40 MG/0.4 ML SYRINGE SC SCH (22:04)
[2022-08-11] MEDS: Metoprolol Tartrate 50 MG TAB PO SCH ×2 (09:04→20:03)
[2022-08-11] MEDS: FLUoxetine HCl 10 MG CAP PO SCH (09:04)
[2022-08-11] MEDS: Floranex 1 GM Packet PO SCH ×2 (09:04→20:04)
[2022-08-11] MEDS: Tamsulosin HCl 0.4 MG CAP PO SCH (09:04)
[2022-08-11] MEDS: Aspirin Chewable 81 MG TAB PO SCH (09:04)
[2022-08-11] MEDS: Finasteride 5 MG TAB PO SCH (09:05)
[2022-08-11] MEDS: Cholecalciferol 1,000 UNITS (25 MCG) TAB PO SCH (09:05)
[2022-08-11] MEDS: Lisinopril 10 MG TAB PO SCH (09:05)
[2022-08-11] MEDS: Carbidopa/Levodopa 25-100 mg Tablet PO SCH ×4 (09:16→20:05)
[2022-08-11] MEDS: Enoxaparin Sodium 40 MG/0.4 ML SYRINGE SC SCH (20:02)
[2022-08-11] MEDS: ALPRAZolam 0.25 MG TAB PO PRN (20:03)
[2022-08-12] MEDS: Carbidopa/Levodopa 25-100 mg Tablet PO SCH ×4 (09:50→20:09)
[2022-08-12] MEDS: Aspirin Chewable 81 MG TAB PO SCH (09:51)
[2022-08-12] MEDS: Metoprolol Tartrate 50 MG TAB PO SCH ×2 (09:51→20:10)
[2022-08-12] MEDS: FLUoxetine HCl 10 MG CAP PO SCH (09:51)
[2022-08-12] MEDS: Tamsulosin HCl 0.4 MG CAP PO SCH (09:51)
[2022-08-12] MEDS: Finasteride 5 MG TAB PO SCH (09:51)
[2022-08-12] MEDS: Cholecalciferol 1,000 UNITS (25 MCG) TAB PO SCH (09:51)
[2022-08-12] MEDS: Lisinopril 10 MG TAB PO SCH (09:51)
[2022-08-12] MEDS: Floranex 1 GM Packet PO SCH (09:52)
[2022-08-12] MEDS: Enoxaparin Sodium 40 MG/0.4 ML SYRINGE SC SCH (20:10)
[2022-08-12] MEDS: Saccharomyces boulardii 250 MG CAP PO SCH (20:11)
[2022-08-13] MEDS: Aspirin Chewable 81 MG TAB PO SCH (09:09)
[2022-08-13] MEDS: Saccharomyces boulardii 250 MG CAP PO SCH ×3 (09:09→20:05)
[2022-08-13] MEDS: Cholecalciferol 1,000 UNITS (25 MCG) TAB PO SCH (09:09)
[2022-08-13] MEDS: Carbidopa/Levodopa 25-100 mg Tablet PO SCH ×4 (09:09→20:05)
[2022-08-13] MEDS: Lisinopril 10 MG TAB PO SCH (09:10)
[2022-08-13] MEDS: Finasteride 5 MG TAB PO SCH (09:10)
[2022-08-13] MEDS: Tamsulosin HCl 0.4 MG CAP PO SCH (09:10)
[2022-08-13] MEDS: Metoprolol Tartrate 50 MG TAB PO SCH ×2 (09:10→20:05)
[2022-08-13] MEDS: FLUoxetine HCl 10 MG CAP PO SCH (09:10)
[2022-08-13] MEDS: ALPRAZolam 0.25 MG TAB PO PRN (13:41)
[2022-08-13] MEDS: Enoxaparin Sodium 40 MG/0.4 ML SYRINGE SC SCH (20:04)
[2022-08-14] MEDS: Lisinopril 10 MG TAB PO SCH (08:50)
[2022-08-14] MEDS: FLUoxetine HCl 10 MG CAP PO SCH (08:50)
[2022-08-14] MEDS: Aspirin Chewable 81 MG TAB PO SCH (08:50)
[2022-08-14] MEDS: Tamsulosin HCl 0.4 MG CAP PO SCH (08:50)
[2022-08-14] MEDS: Cholecalciferol 1,000 UNITS (25 MCG) TAB PO SCH (08:50)
[2022-08-14] MEDS: Metoprolol Tartrate 50 MG TAB PO SCH (08:50)
[2022-08-14] MEDS: Carbidopa/Levodopa 25-100 mg Tablet PO SCH (08:50)
[2022-08-14] MEDS: Saccharomyces boulardii 250 MG CAP PO SCH (08:50)
[2022-08-14] MEDS: Finasteride 5 MG TAB PO SCH (08:51)
[2022-08-14 12:25] VITALS: BP 101/59; TEMP 97.6
== END 2022-08-14 12:15 | DRG 57 ==
LOC: 2NO 15:03 → INTOOBSV 15:03 → OBSVTOIN 07-14 10:53 → T4-A 07-17 18:08
PROVIDERS: ADMIT Hospitalist; ATTEND Hospitalist
DX: G20 Parkinson's disease (principal); M48.061 Spinal stenosis, lumbar region without neurogenic claudication; Z20.822 Contact with and (suspected) exposure to COVID-19; I10 Essential (primary) hypertension; Z51.5 Encounter for palliative care; E78.5 Hyperlipidemia, unspecified; I73.9 Peripheral vascular disease, unspecified; I25.10 Atherosclerotic heart disease of native coronary artery without angina pectoris; F41.9 Anxiety disorder, unspecified; F32.A Depression, unspecified; N40.0 Benign prostatic hyperplasia without lower urinary tract symptoms; F02.80 Dementia in other diseases classified elsewhere, unspecified severity, without behavioral disturbance, psychotic disturbance, mood disturbance, and anxiety; M48.02 Spinal stenosis, cervical region; M50.11 Cervical disc disorder with radiculopathy, high cervical region; M17.12 Unilateral primary osteoarthritis, left knee; F17.210 Nicotine dependence, cigarettes, uncomplicated; N28.1 Cyst of kidney, acquired; R29.6 Repeated falls; F22 Delusional disorders; R05.9 Cough, unspecified; Z88.8 Allergy status to other drugs, medicaments and biological substances; Z79.899 Other long term (current) drug therapy; Z79.82 Long term (current) use of aspirin; Z86.73 Personal history of transient ischemic attack (TIA), and cerebral infarction without residual deficits; Z95.1 Presence of aortocoronary bypass graft
CPT/HCPCS: 36415; 36416; 70450; 70551; 71045; 72141; 74018; 74230; 80048; 80053; 82565; 83735; 85014; 85018; 85025; 85049; 87811; 94640; G0378; J0360; J1650; J7050; J7620; U0003; U0005

== ENCOUNTER 2022-09-03 23:15 | Emergency (ER) | payer OTHER ==
[2022-09-04 01:26] LABS: #Eosinphils 0.1 thou/uL (0.0-0.7); #Lymphocytes 1.3 thou/uL (1.20-3.40); #Monocytes 0.4 thou/uL (0.11-0.59); #Neutrophils 4.4 thou/uL (1.40-6.50); %Basophils 0.3 % (0.0-1.0); %Eosinophils 1.3 % (0.0-10.0); %Lymphocytes 21.2 % (21.0-51.0); %Monocytes 6.8 % (0.0-10.0); %Neutrophils 70.4 % (42.0-75.0); Hemoglobin 15.2 g/dL (14.0-18.0); Mean Corpuscular HGB CONC 33.4 g/dL (32.0-36.0); Mean Corpuscular Hemoglobin 32.9 pg (27.0-31.0); Mean Corpuscular Volume 98.6 fL (78.0-98.0); Platelet Count 206 thou/uL (130-400); RBC Distribution Width 13.3 % (11.5-14.5); White Blood Cell (WBC) Count 6.3 thou/uL (4.8-10.8)
[2022-09-04 01:35] LABS: ALT (SGPT) Less than 7 U/L (8-55); AST (SGOT) 11 U/L (5-34); Albumin 3.4 g/dL (3.4-4.8); Alkaline Phosphatase 68 U/L (40-110); Anion Gap 12 mmol/L (10-20); BUN (Urea Nitrogen) 20 mg/dL (8.4-25.7); Bilirubin, Total 0.6 mg/dL (0.2-1.2); Calc. Creatinine Clearance 0 mL/min (70-130); Calcium 9.3 mg/dL (7.8-10.44); Carbon Dioxide 26 mmol/L (23-31); Chloride 108 mmol/L (98-107); Estimated GFR 41; Globulin 3.2 g/dL (2.4-3.5); Glucose 100 mg/dL (83-110); Potassium 4.5 mmol/L (3.5-5.1); Protein, Total 6.6 g/dL (5.8-8.1); Sodium 141 mmol/L (136-145)
[2022-09-04 01:50] LABS: Acetaminophen Less than 10.0 mcg/mL (10.0-30.0); Alcohol Less than 10 mg/dL (Less than 10); Salicylate Less than 8.0 mg/dL (15.0-30.0)
[2022-09-04 06:57] LABS: Amphetamine Not Detected (NotDetected); Barbiturates Screen Not Detected (NotDetected); Benzodiazepine Screen Not Detected (NotDetected); Cocaine Metabolite Screen Not Detected (NotDetected); Methadone Not Detected (NotDetected); Methamphetamine Not Detected (NotDetected); Opiate Screen Not Detected (NotDetected); Oxycodone Screen Not Detected (NotDetected); Phencyclidine (PCP) Not Detected (NotDetected); THC/Cannabinoid Screen Not Detected (NotDetected); Tricyclic Screen Detected (NotDetected)
[2022-09-04] MEDS ORDERED: Lorazepam 2 MG/ML VIAL ONE (11:47)
[2022-09-04 13:51] LABS: SARS-CoV-2 NAA Rapid Test Not Detected (NotDetected)
[2022-09-05] MEDS ORDERED: Sterile Water 10 ML VIAL FS PRN (07:00)
[2022-09-05] MEDS ORDERED: Ziprasidone 20 MG VIAL IM SCH (07:00)
[2022-09-05] MEDS ORDERED: FLUoxetine HCl 10 MG CAP PO SCH (09:00)
[2022-09-05] MEDS ORDERED: Meclizine HCl 25 MG TAB PO SCH (09:00)
[2022-09-05] MEDS ORDERED: Tamsulosin HCl 0.4 MG CAP PO SCH (09:00)
[2022-09-05] MEDS ORDERED: Metoprolol Tartrate 50 MG TAB PO SCH (09:00)
[2022-09-05] MEDS ORDERED: Carbidopa/Levodopa 25-100 mg Tablet PO SCH (09:00)
[2022-09-05] MEDS ORDERED: Lisinopril 10 MG TAB PO SCH (09:00)
== END 2022-09-05 18:00 ==
LOC: ERS 23:15
DX: R45.851 Suicidal ideations (principal); R55 Syncope and collapse; N17.9 Acute kidney failure, unspecified; I10 Essential (primary) hypertension; E78.5 Hyperlipidemia, unspecified; Z79.899 Other long term (current) drug therapy; Z87.891 Personal history of nicotine dependence; Z20.822 Contact with and (suspected) exposure to COVID-19
CPT/HCPCS: 36415; 71045; 80053; 80306; 80307; 84443; 84484; 85025; 93005; 94760; 96372; 96374; J2060; U0002